=== PATIENT | female | born 1950 ===

== ENCOUNTER 2021-04-04 11:15 | Inpatient (IN) | payer OTHER ==
[2021-04-04] MEDS ORDERED: VOLTAREN ARTHRI20 GM (14:57)
[2021-04-04] MEDS ORDERED: LOSARTAN-HCTZ1 EAC1 (14:57)
[2021-04-04] MEDS ORDERED: GRALISE600 MG (14:57)
[2021-04-04] MEDS ORDERED: RESTORIL30 M1 (14:57)
[2021-04-04] MEDS ORDERED: VOLTAREN (14:58)
[2021-04-04] MEDS ORDERED: NP THYROID30 MG (14:59)
[2021-04-04] MEDS ORDERED: NP THYROID15 MG (14:59)
[2021-04-04] MEDS ORDERED: METFORMIN HCL500 M3 (14:59)
[2021-04-06] MEDS ORDERED: ALL DAY ALLERGY10 MG (13:06)
[2021-04-06] MEDS ORDERED: DICLOFENAC POTA50 MG (13:06)
[2021-04-06] MEDS ORDERED: DICLOFENAC SOD100 MG (13:06)
[2021-04-06] MEDS ORDERED: ATENOLOL25 MG (13:07)
[2021-04-06] MEDS ORDERED: LEVOTHYROXINE50 MCG (13:07)
[2021-04-06] MEDS ORDERED: AMITRIPTYLINE H25 MG (13:07)
[2021-04-06] MEDS ORDERED: FOLIC ACID1 MG (13:07)
[2021-04-06] MEDS ORDERED: ETODOLAC400 MG (13:07)
[2021-04-08] MEDS ORDERED: PERCOCET 5-3251 EACH PO (11:21)
== END 2021-04-08 17:50 | disposition home or self-care (01) | DRG 330 ==
LOC: O/R 04-06 05:57 → SURH 04-06 05:57
PROVIDERS: ADMIT Surgery; ATTEND Surgery
PROC: 0DBP4ZZ Excision of Rectum, Percutaneous Endoscopic Approach (ICD-10-PCS; 2021-04-06)
PROC: 0UBG4ZZ Excision of Vagina, Percutaneous Endoscopic Approach (ICD-10-PCS; 2021-04-06)
PROC: 0DJD8ZZ Inspection of Lower Intestinal Tract, Via Natural or Artificial Opening Endoscopic (ICD-10-PCS; 2021-04-06)
PROC: 0DTN4ZZ Resection of Sigmoid Colon, Percutaneous Endoscopic Approach (ICD-10-PCS; principal; 2021-04-06 09:30)
DX: K57.32 Diverticulitis of large intestine without perforation or abscess without bleeding (principal); N82.3 Fistula of vagina to large intestine; N39.0 Urinary tract infection, site not specified; N73.6 Female pelvic peritoneal adhesions (postinfective); D50.0 Iron deficiency anemia secondary to blood loss (chronic); I11.9 Hypertensive heart disease without heart failure; E03.9 Hypothyroidism, unspecified; I87.2 Venous insufficiency (chronic) (peripheral)

== ENCOUNTER 2022-01-19 08:36 | Outpatient (CLI) | payer OTHER ==
[~2022-01-19 08:36] MED LIST: ALL DAY ALLERGY10 MG; AMITRIPTYLINE H25 MG; ATENOLOL25 MG; DICLOFENAC POTA50 MG; DICLOFENAC SOD100 MG; ETODOLAC400 MG; FOLIC ACID1 MG; GRALISE600 MG; LEVOTHYROXINE50 MCG; LOSARTAN-HCTZ1 EAC1; METFORMIN HCL500 M3; NP THYROID15 MG; NP THYROID30 MG; PERCOCET 5-3251 EACH PO; RESTORIL30 M1; VOLTAREN; VOLTAREN ARTHRI20 GM
== END 2022-01-19 08:43 | disposition home or self-care (01) ==
LOC: RX STUDY 08:36
PROVIDERS: ATTEND Surgery
DX: K57.30 Diverticulosis of large intestine without perforation or abscess without bleeding (principal)